=== PATIENT | male | born 1990 | race African-American/Black ===

== ENCOUNTER → 2018-08-12 06:00 | Outpatient (CLI) | payer OTHER ==
[~2018-08-12 06:00] MED LIST: NAPROSYN500 MG PO
[2018-08-12 06:23] VITALS: BMI 22.9
== END | disposition home or self-care (01) ==
LOC: D.OPS 05:43
DX: S62.324A Displaced fracture of shaft of fourth metacarpal bone, right hand, initial encounter for closed fracture (principal)

== ENCOUNTER 2018-08-12 08:39 | Day surgery (SDC) | payer OTHER ==
[~2018-08-12] VITALS: Ht 175.3 cm; Wt 70.3 kg
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
[2018-08-12 06:23] VITALS: BP 129/64; Ht 175.3 cm; Wt 70.3 kg
== END 2018-08-12 13:35 | disposition other institution (70) ==
LOC: D.OPS 08:39
DX: S62.324A Displaced fracture of shaft of fourth metacarpal bone, right hand, initial encounter for closed fracture (principal); W22.8XXA Striking against or struck by other objects, initial encounter; Z01.812 Encounter for preprocedural laboratory examination